=== PATIENT | male | born 1980 | race Caucasian/White ===

== ENCOUNTER 2016-10-11 15:13 | Emergency (ER) | payer OTHER ==
--- NOTE | ~2016-10-11 | EKG ---
PATIENT: PAULINE HALL UNIT #: [id number] Ventricular Rate: 101 BPM Atrial Rate: 101 BPM P-R Interval: 156 ms QRS Duration: 84 ms Q-T Interval: 342 ms QTC Calculation(Bezet): 443 ms P [place]: 69 degrees Calculated R [place]: 30 degrees Calculated T [place]: 43 degrees Diagnosis Line: Sinus tachycardia Diagnosis Line: Possible Left atrial enlargement Diagnosis Line: Borderline ECG Diagnosis Line: No previous ECGs available Diagnosis Line: Confirmed by DIEGO CHANDLER MD ([id number]) on Diagnosis Line: 10/13/2016 2:52:08 PM INTERPRETING MD: RAMESH DAVIS
--- NOTE | ~2016-10-11 | CT4 ---
[facility]. [facility] A Service of [facility] RADIOLOGY TEXT RESULTS PATIENT: PAULINE HALL LOCATION: SED : 81 UNIT #: [id number] AGE: [address]: Saturnino Billingsley MD SEX: M ORDER DR: [id number] [place] [id number] E MR#: [id number] Acc #: [id number] NAME: PAULINE HALL : 1980 SEX: M STUDY DATE/TIME: 10/11/2016 16:04 UNIT: SED ROOM: STUDY DESCRIPTION: CT Abd and Pelv Wo Cont Attending Physician: Saturnino Billingsley M.D. Ordering Physician: Saturnino Billingsley M.D. MEDICAL IMAGING REPORT This report is preliminary unless electronic signature is present. EXAM CT abdomen and pelvis without contrast INDICATIONS 36-year male with abdominal pain, dizziness and vomiting when standing and diarrhea. The symptoms began today. TECHNIQUE CT of the abdomen and pelvis was performed without contrast. Coronal and sagittal reformatted images were obtained. They are no comparison studies available. This CT exam was performed with one or more of the following radiation dose reduction techniques: automatic exposure control, adjustment of mA and/or kV according to patient size, and iterative reconstruction. FINDINGS The lung bases are clear. The liver is unremarkable. The gallbladder contains stones or sludge. The spleen is unremarkable. Kidneys are unremarkable. The adrenal glands are unremarkable. The pancreas is unremarkable. Pelvis: Sigmoid diverticulosis. No evidence of diverticulitis. The colon unremarkable. Normal appendix. No free fluid. The bone windows are unremarkable. IMPRESSION 1. No acute findings. 2. Stones or sludge in the gallbladder. Gallbladder otherwise unremarkable. 3. Sigmoid diverticulosis. No evidence of diverticulitis. 4. Normal appendix. 1. [facility] A Service of [facility] RADIOLOGY TEXT RESULTS PATIENT: PAULINE HALL LOCATION: SED : 81 UNIT #: [id number] AGE: [address]: Saturnino Billingsley MD SEX: M ORDER DR: Dictated by... Kahlil Braun M.D. THIS IS AN ELECTRONICALLY VERIFIED REPORT Kahlil Braun M.D. at 10/15/2016 8:37 AM CHARLETTE/daysi TD: 10/12/2016 06:34 JOB #: [id number] MEDICAL IMAGING REPORT
[2016-10-11 14:57] LABS: BASOPHIL# 0.1 X10e3 (0-0.3); BASOPHIL% 0.5 % (0-2.5); DIFF IND NO; EOSINOPHIL# 0.1 X10e3 (0-0.7); EOSINOPHIL% 0.7 % (0.0-7.0); HEMATOCRIT 50.3 % (38.0-50.0); HEMOGLOBIN 16.8 gm/dL (13.0-16.0); LYMPHOCYTE# 0.3 X10e3 (1.0-3.5); LYMPHOCYTE% 2.3 % (17.0-45.0); MEAN CELL VOLUME 87.8 FL (83-96); MEAN CORPUSCULAR HEMOGLOBIN 29.4 PG (28-34); MEAN CORPUSCULAR HGB CONC 33.5 g/dL (30-36); MEAN PLATELET VOLUME 8.7 FL (6.5-11.5); MONOCYTE# 0.4 X10e3 (0-1.0); MONOCYTE% 3.7 % (3.0-12.0); NEUTROPHIL# 10.8 X10e3 (1.5-7.1); NEUTROPHIL% 92.8 % (40-75); PLATELET COUNT 205 X10e3 (140-420); RED BLOOD COUNT 5.73 X10e (3.90-5.60); RED CELL DISTRIBUTION WIDTH 13.4 % (11.0-15.5); WHITE BLOOD COUNT 11.6 X10e3 (4.0-10.5)
[~2016-10-11 15:13] MED LIST: ALBUTEROL17 GM; HYDROCODON-ACE1 EAC9
[2016-10-11 15:15] LABS: AMYLASE 18 U/L (0-46); LIPASE 23 U/L (22-51)
[2016-10-11 15:17] LABS: ALKALINE PHOSPHATASE 52 U/L (32-92); ALT (SGPT) 30 U/L (10-40); AST (SGOT) 28 U/L (10-42); BILIRUBIN, DIRECT 0.1 mg/dL (0.0-0.2); BILIRUBIN,INDIRECT 0.9 mg/dL (0.0-0.9); BLOOD UREA NITROGEN 16 mg/dL (9-23); BUN/CREATININE RATIO 14.54; CALCIUM SERUM 8.5 mg/dL (8.4-10.2); CARBON DIOXIDE 27 mmol/L (22-31); CHLORIDE 103 mmol/L (100-111); CREATININE SERUM 1.1 mg/dL (0.6-1.4); GLOM FILT RATE Estimated ABOVE60 mL/min (>60); GLUCOSE FASTING 126 mg/dL (70-110); POTASSIUM 3.9 mmol/L (3.5-5.1); PROTEIN TOTAL SERUM 6.9 g/dL (6.0-8.3); SODIUM 137 mmol/L (135-145)
== END 2016-10-11 17:09 | disposition home or self-care (01) ==
LOC: SED 15:13
PROVIDERS: Emergency Medicine
DX: K52.9 Noninfective gastroenteritis and colitis, unspecified (principal); E86.0 Dehydration; Z87.891 Personal history of nicotine dependence; Z88.8 Allergy status to other drugs, medicaments and biological substances
CPT/HCPCS: 36415; 74176; 80048; 80076; 82150; 83690; 85025; 93005; 96361; 96374; 96375; 99284; C9113; J2405

== ENCOUNTER 2017-02-24 11:49 | Emergency (ER) | payer OTHER ==
--- NOTE | ~2017-02-24 | CT4 ---
[facility] A Service of [facility] RADIOLOGY TEXT RESULTS PATIENT: PAULINE HALL LOCATION: SED : 81 UNIT #: [id number] AGE: [address]: Saturnino Billingsley MD SEX: M ORDER DR: [id number] [place] [address] [id number] E MR#: [id number] Acc #: [id number] NAME: PAULINE HALL : 1980 SEX: M STUDY DATE/TIME: 02/24/2017 12:19 UNIT: SED ROOM: STUDY DESCRIPTION: CT Abd and Pelv Wo Cont Attending Physician: Saturnino Billingsley M.D. Ordering Physician: Saturnino Billingsley M.D. Primary Care Physician: Primary Care Physician No MEDICAL IMAGING REPORT This report is preliminary unless electronic signature is present. EXAM CT abdomen and pelvis without contrast INDICATIONS Right flank pain beginning yesterday. PROCEDURE Unenhanced CT of the abdomen and pelvis. This CT exam was performed with one or more of the following radiation dose reduction techniques: Automatic exposure control, adjustment of mA and/or kV according to patient size, and iterative reconstruction. COMPARISON 10/11/2016 FINDINGS ABDOMEN WITHOUT CONTRAST: Included lung bases are clear. Liver, spleen, kidneys, adrenal glands, pancreas unremarkable. Unremarkable gallbladder. Sigmoid diverticula. No acute complication. Appendix is normal. There is a 9 mm radiodense structure in the cecum. PELVIS WITHOUT CONTRAST: No pelvic mass or fluid. No aggressive appearing bone lesion. IMPRESSION 1. No clearly acute finding. 2. Sigmoid diverticula without definitive evidence for active complication. Early or mild diverticulitis can be CT occult and if the patient's symptoms persist, repeat imaging may be warranted. 3. 9 mm round radiodensity in the cecum. Correlate with any ingested foreign body. [facility] A Service [facility] RADIOLOGY TEXT RESULTS PATIENT: PAULINE HALL LOCATION: SED : 81 UNIT #: [id number] AGE: [address]: Saturnino Billingsley MD SEX: M ORDER DR: Dictated by... Norberto Diaz M.D. THIS IS AN ELECTRONICALLY VERIFIED REPORT Norberto Diaz M.D. at 02/26/2017 5:02 PM EED/psc TD: 02/24/2017 21:59 JOB #: [id number] MEDICAL IMAGING REPORT Page 1 of 1
[2017-02-24 13:34] LABS: BASOPHIL% 0.5 % (0-2.5); EOSINOPHIL# 0.2 X10e3 (0-0.7); EOSINOPHIL% 2.8 % (0.0-7.0); HEMOGLOBIN 15.5 gm/dL (13.0-16.0); LYMPHOCYTE# 1.6 X10e3 (1.0-3.5); LYMPHOCYTE% 19.8 % (17.0-45.0); MEAN CELL VOLUME 87.1 FL (83-96); MEAN CORPUSCULAR HEMOGLOBIN 30.1 PG (28-34); MEAN CORPUSCULAR HGB CONC 34.5 g/dL (30-36); MEAN PLATELET VOLUME 7.9 FL (6.5-11.5); MONOCYTE# 0.5 X10e3 (0-1.0); MONOCYTE% 6.4 % (3.0-12.0); NEUTROPHIL# 5.6 X10e3 (1.5-7.1); NEUTROPHIL% 70.5 % (40-75); PLATELET COUNT 231 X10e3 (140-420); RED BLOOD COUNT 5.16 X10e (3.90-5.60); RED CELL DISTRIBUTION WIDTH 13.5 % (11.0-15.5); WHITE BLOOD COUNT 7.9 X10e3 (4.0-10.5)
[2017-02-24 13:35] LABS: DIFF IND NO
[2017-02-24 13:54] LABS: ALBUMIN SERUM 3.6 g/dL (3.5-5.0); ALKALINE PHOSPHATASE 39 U/L (32-92); ALT (SGPT) 23 U/L (10-40); AST (SGOT) 21 U/L (10-42); BILIRUBIN,TOTAL 0.7 mg/dL (0.2-2.0); BLOOD UREA NITROGEN 13 mg/dL (9-23); BUN/CREATININE RATIO 11.81; CALCIUM SERUM 8.2 mg/dL (8.4-10.2); CARBON DIOXIDE 31 mmol/L (22-31); CHLORIDE 105 mmol/L (100-111); CREATININE SERUM 1.1 mg/dL (0.6-1.4); GLOM FILT RATE Estimated 86.5 mL/min (>60); GLUCOSE FASTING 118 mg/dL (70-110); POTASSIUM 4.3 mmol/L (3.5-5.1); PROTEIN TOTAL SERUM 6.5 g/dL (6.0-8.3); SODIUM 139 mmol/L (135-145)
[2017-02-24 14:02] LABS: BILIRUBIN, DIRECT <0.1 mg/dL (0.0-0.2); BILIRUBIN,INDIRECT 0.6 mg/dL (0.0-0.9)
[2017-02-24 14:43] LABS: URINE SOURCE CLEAN CATCH
[2017-02-24 14:46] LABS: URINE APPEARANCE CLEAR; URINE BILIRUBIN NEG (NEG); URINE BLOOD NEG (NEG); URINE COLOR YELLOW; URINE GLUCOSE NEG (NORM); URINE KETONE NEG (NEG); URINE LEUKOCYTE ESTERASE 1+ (NEG); URINE NITRATE NEG (NEG); URINE PROTEIN NEG (NEG); URINE SPECIFIC GRAVITY 1.015 (1.003-1.035)
[2017-02-24 15:12] LABS: MICRO INDICATED? YES
[2017-02-24 15:13] LABS: CULTURE INDICATED? YES; URINE BACTERIA NEG (NEG); URINE RBC 0-2 /[HPF] (0-2); URINE SQUAMOUS EPITHELIAL CELL OCCAS /[HPF]
== END 2017-02-24 15:29 | disposition home or self-care (01) ==
LOC: SED 11:49
PROVIDERS: Emergency Medicine
DX: K57.32 Diverticulitis of large intestine without perforation or abscess without bleeding (principal); N39.0 Urinary tract infection, site not specified; E66.9 Obesity, unspecified; F17.210 Nicotine dependence, cigarettes, uncomplicated; Z88.1 Allergy status to other antibiotic agents; Z79.899 Other long term (current) drug therapy
CPT/HCPCS: 36415; 74176; 80048; 80076; 81003; 85025; 87086; 96374; 96375; 99284; J2270; J2405

== ENCOUNTER 2017-04-16 17:43 | Emergency (ER) | payer OTHER ==
[~2017-04-16] VITALS: Ht 195.6 cm; Wt 158.8 kg
--- NOTE | ~2017-04-16 | CT4 ---
[facility] A Service of [facility] RADIOLOGY TEXT RESULTS PATIENT: PAULINE HALL LOCATION: SED : 81 UNIT #: [id number] AGE: [address]: NAKUL CHU SEX: M ORDER DR: [id number] [address] [address] [id number] E MR#: [id number] Acc #: [id number] NAME: PAULINE HALL : 1980 SEX: M STUDY DATE/TIME: 04/16/2017 19:42 UNIT: SED ROOM: STUDY DESCRIPTION: CT Abd and Pelv Wo Cont Attending Physician: Caitlyn Manuel Ordering Physician: Physician Non-Staff Primary Care Physician: Primary Care Physician No MEDICAL IMAGING REPORT This report is preliminary unless electronic signature is present. EXAM CT scan of the abdomen and pelvis without contrast 04/16/2017 HISTORY Vomiting and generalized abdominal pain beginning 1 day ago with dizziness, hot flashes and fever also beginning yesterday. TECHNIQUE Spiral CT was performed through the abdomen and pelvis without oral or intravenous contrast administration as per clinician request. This CT examination was performed with one or more of the following radiation dose reduction techniques: automatic exposure control, adjustment of mA and/or kV according to patient size, and iterative reconstruction. FINDINGS ABDOMEN: The exam is limited by the lack of oral and intravenous contrast. The liver, spleen, pancreas, gallbladder and biliary tree, adrenal glands and kidneys are normal. PELVIS: There is colonic diverticulosis without evidence of diverticulitis. The gut is otherwise unremarkable. No adenopathy is seen. There is no free fluid in the abdomen or pelvis. The lung bases are normal. IMPRESSION 1. Exam is limited by the lack of oral and intravenous contrast. 2. Diverticulosis. No evidence of diverticulitis. Dictated by... Javi Nicole M.D. [facility] A Service of [facility] RADIOLOGY TEXT RESULTS PATIENT: PAULINE HALL LOCATION: SED : 81 UNIT #: [id number] AGE: [address]: NAUKL CHU SEX: M ORDER DR: THIS IS AN ELECTRONICALLY VERIFIED REPORT Javi iNcole M.D. at 04/17/2017 10:39 AM MELVI/jose TD: 04/17/2017 07:12 JOB #: [id number] MEDICAL IMAGING REPORT Page 1 of 1
[2017-04-16 18:29] LABS: BASOPHIL% 0.4 % (0-2.5); DIFF IND NO; EOSINOPHIL% 0.4 % (0.0-7.0); HEMATOCRIT 45.3 % (38.0-50.0); HEMOGLOBIN 15.6 gm/dL (13.0-16.0); LYMPHOCYTE# 0.8 X10e3 (1.0-3.5); LYMPHOCYTE% 11.2 % (17.0-45.0); MEAN CELL VOLUME 86.7 FL (83-96); MEAN CORPUSCULAR HEMOGLOBIN 29.8 PG (28-34); MEAN CORPUSCULAR HGB CONC 34.4 g/dL (30-36); MONOCYTE# 0.6 X10e3 (0-1.0); MONOCYTE% 8.9 % (3.0-12.0); NEUTROPHIL# 5.6 X10e3 (1.5-7.1); NEUTROPHIL% 79.1 % (40-75); PLATELET COUNT 190 X10e3 (140-420); RED BLOOD COUNT 5.23 X10e (3.90-5.60)
[2017-04-16 18:44] LABS: BILIRUBIN, DIRECT 0.1 mg/dL (0.0-0.2); BILIRUBIN,INDIRECT 0.8 mg/dL (0.0-0.9); BILIRUBIN,TOTAL 0.9 mg/dL (0.2-2.0); BUN/CREATININE RATIO 12.72; CALCIUM SERUM 8.5 mg/dL (8.4-10.2); CREATININE SERUM 1.1 mg/dL (0.6-1.4); GLOM FILT RATE Estimated 85.9 mL/min (>60); POTASSIUM 3.5 mmol/L (3.5-5.1); PROTEIN TOTAL SERUM 6.8 g/dL (6.0-8.3)
[2017-04-16 20:48] LABS: URINE SOURCE CLEAN CATCH
[2017-04-16 20:50] LABS: URINE APPEARANCE CLEAR; URINE BILIRUBIN NEG (NEG); URINE BLOOD NEG (NEG); URINE COLOR YELLOW; URINE GLUCOSE NEG (NORM); URINE KETONE TRACE (NEG); URINE LEUKOCYTE ESTERASE 2+ (NEG); URINE NITRATE NEG (NEG); URINE PROTEIN NEG (NEG)
[2017-04-16 20:54] LABS: MICRO INDICATED? YES
[2017-04-16 20:57] LABS: CULTURE INDICATED? YES; URINE AMORPHOUS SEDIMENT AMORP PHOSPHATES; URINE BACTERIA 1+ (NEG); URINE SQUAMOUS EPITHELIAL CELL FEW /[HPF]; URINE TRANSITIONAL EPI CELLS FEW /[HPF]; URINE WBC 25-50 /[HPF] (0-5)
[2017-04-20 20:58] LABS: CHLAMYDIA TRACH Not Detected (Not Detected); N GONOR Not Detected (Not Detected)
== END 2017-04-16 22:28 | disposition home or self-care (01) ==
LOC: SED 17:43
PROVIDERS: Physician Assistant
DX: R10.84 Generalized abdominal pain (principal); R19.7 Diarrhea, unspecified; R11.2 Nausea with vomiting, unspecified; Z88.1 Allergy status to other antibiotic agents
CPT/HCPCS: 36415; 74176; 80048; 80076; 81003; 85025; 87086; 87491; 87591; 96365; 96375; 99284; J0696; J2405

== ENCOUNTER 2017-04-17 19:56 | Emergency (ER) | payer OTHER ==
[~2017-04-17] VITALS: Ht 195.6 cm; Wt 158.8 kg
--- NOTE | ~2017-04-17 | CR72 ---
[facility] A Service of [facility] RADIOLOGY TEXT RESULTS PATIENT: PAULINE HALL SR LOCATION: SED : 81 UNIT #: [id number] AGE: [address]: Norberto Davis MD SEX: M ORDER DR: [id number] [place] [address] [id number] E MR#: [id number] Acc #: [id number] NAME: PAULINE HALL SR : 1980 SEX: M STUDY DATE/TIME: 04/17/2017 21:18 UNIT: SED ROOM: STUDY DESCRIPTION: CR Chest Single View Portable Attending Physician: Norberto Davis M.D. Ordering Physician: Milo Davis M.D. Primary Care Physician: No Primary Care Physician MEDICAL IMAGING REPORT This report is preliminary unless electronic signature is present. EXAM Single view of the chest dated 04/17/2017. COMPARISON None HISTORY Cough, fever, and headache for 3 days. FINDINGS Single view of the chest was obtained. A single AP portable view of the chest shows both lungs to be clear. The heart is normal in size. The mediastinal contour is normal. No significant bone abnormalities are seen. IMPRESSION Normal portable chest. Dictated by... Silva Lezama M.D. THIS IS AN ELECTRONICALLY VERIFIED REPORT Silva Lezama M.D. at 04/24/2017 6:59 AM CPR/tmw TD: 04/17/2017 23:15 JOB #: [id number] [facility] A Service of [facility] RADIOLOGY TEXT RESULTS PATIENT: PAULINE HALL SR LOCATION: SED : [birth year] UNIT #: [id number] AGE: [address]: Norberto Davis MD SEX: M ORDER DR: MEDICAL IMAGING REPORT Page 1 of 1
[2017-04-17 20:47] LABS: URINE SOURCE CLEAN CATCH
[2017-04-17 20:49] LABS: URINE APPEARANCE CLEAR; URINE BILIRUBIN NEG (NEG); URINE BLOOD NEG (NEG); URINE COLOR YELLOW; URINE GLUCOSE NEG (NORM); URINE KETONE NEG (NEG); URINE LEUKOCYTE ESTERASE TRACE (NEG); URINE NITRATE NEG (NEG); URINE PROTEIN NEG (NEG); URINE SPECIFIC GRAVITY 1.025 (1.003-1.035)
[2017-04-17 20:51] LABS: MICRO INDICATED? YES; URINE RBC 0-2 /[HPF] (0-2)
[2017-04-17 20:52] LABS: CULTURE INDICATED? YES; URINE BACTERIA NEG (NEG); URINE SQUAMOUS EPITHELIAL CELL OCCAS /[HPF]
[2017-04-17 21:29] LABS: BASOPHIL% 0.6 % (0-2.5); EOSINOPHIL% 0.3 % (0.0-7.0); HEMATOCRIT 47.8 % (38.0-50.0); HEMOGLOBIN 16.5 gm/dL (13.0-16.0); LYMPHOCYTE# 0.6 X10e3 (1.0-3.5); MEAN CELL VOLUME 87.1 FL (83-96); MEAN CORPUSCULAR HEMOGLOBIN 30.2 PG (28-34); MEAN CORPUSCULAR HGB CONC 34.7 g/dL (30-36); MEAN PLATELET VOLUME 8.4 FL (6.5-11.5); MONOCYTE# 0.4 X10e3 (0-1.0); MONOCYTE% 9.4 % (3.0-12.0); NEUTROPHIL# 3.5 X10e3 (1.5-7.1); NEUTROPHIL% 76.7 % (40-75); PLATELET COUNT 215 X10e3 (140-420); RED BLOOD COUNT 5.48 X10e (3.90-5.60); RED CELL DISTRIBUTION WIDTH 14.1 % (11.0-15.5); WHITE BLOOD COUNT 4.6 X10e3 (4.0-10.5)
[2017-04-17 21:34] LABS: DIFF IND NO
[2017-04-17 21:35] LABS: INFLUENZA A NEG (NEG); INFLUENZA B NEG (NEG)
[2017-04-17 21:45] LABS: CALCIUM SERUM 8.6 mg/dL (8.4-10.2); CREATININE SERUM 1.3 mg/dL (0.6-1.4); GLOM FILT RATE Estimated 70.2 mL/min (>60); POTASSIUM 4.2 mmol/L (3.5-5.1)
== END 2017-04-17 22:36 | disposition home or self-care (01) ==
LOC: SED 19:56
PROVIDERS: Emergency Medicine
DX: B34.9 Viral infection, unspecified (principal); Z91.040 Latex allergy status; Z88.8 Allergy status to other drugs, medicaments and biological substances
CPT/HCPCS: 36415; 71010; 80048; 81003; 85025; 86308; 87086; 87651; 87804; 96361; 96374; 96375; 99284; J1885; J2765